=== PATIENT | female | born 1930 | race Caucasian/White ===

== ENCOUNTER 2019-06-18 13:44 | Observation (INO) ==
[2019-06-18] MEDS ORDERED: ONDANSETRON 4 MG/2 ML VIAL IV PRN (15:16)
[2019-06-18] MEDS ORDERED: LABETALOL 20 MG/4 ML SYRINGE IV PRN (15:19)
[2019-06-18 15:54] LABS: Basophils % 0.4 % (0.0-0.8); Eosinophils # 0.1 10*3/uL (0.0-0.87); Hematocrit 37.6 VOL% (35.7-47.0); Immature Granulocytes % 0.4 %; Immature Granulocytes Absolute 0.03 #; Lymphocytes # 2.9 10*3/uL (1.4-4.0); Lymphocytes % 37.4 % (21.3-54.2); Mean Corpuscular HGB Conc 31.9 GM/DL (32-36); Mean Corpuscular Volume 88.9 FL (87-102); Mean Platelet Volume 12.1 FL (9.6-12.0); Monocytes % 6.4 % (1.7-12.7); Neutrophils % 54.4 % (38.7-73.9); Platelet Count 188 T/CUMM (130-400); Red Blood Count 4.23 MC/CUMM (3.8-5.5); Red Cell Distribution Width 12.7 % (9.3-17.3); White Blood Count 7.7 T/CUMM (4-12)
[2019-06-18 16:03] LABS: PT Patient Result 10.6 SECS (9.6-12.2)
[2019-06-18 16:17] LABS: Albumin 3.3 G/DL (3.4-5.0); Bilirubin,Total 0.6 MG/DL (0.2-1.0); Osmolality,Calculated 279.3 MOS/KG (273-304); Total Protein 6.8 G/DL (6.4-8.3)
[2019-06-18] MEDS ORDERED: CYANOCOBALAMIN 1000 MCG/1 ML VIAL IM SCH (16:30)
[2019-06-18] MEDS: ALBUTEROL 2.5 MG/3 ML NEB RESP TX SCH ×2 (17:41→23:52)
[2019-06-18] MEDS: SODIUM CHLORIDE 0.9% 1,000 ML IV SCH (18:44)
[2019-06-18] MEDS: ALPRAZolam 0.25 MG TABLET PO PRN (21:37)
[2019-06-19] MEDS: SODIUM CHLORIDE 0.9% 1,000 ML IV SCH (02:44)
[2019-06-19] MEDS ORDERED: ACETAMINOPHEN 325 MG TABLET PO PRN (04:19)
[2019-06-19 05:28] LABS: Basophils % 0.6 % (0.0-0.8); Eosinophils # 0.1 10*3/uL (0.0-0.87); Eosinophils % 1.9 % (0.00-10.9); Hematocrit 34.3 VOL% (35.7-47.0); Hemoglobin 10.9 GM/DL (12.0-16.0); Immature Granulocytes % 0.2 %; Immature Granulocytes Absolute 0.01 #; Lymphocytes # 2.4 10*3/uL (1.4-4.0); Lymphocytes % 36.9 % (21.3-54.2); Mean Corpuscular HGB Conc 31.8 GM/DL (32-36); Mean Platelet Volume 12.6 FL (9.6-12.0); Monocytes % 7.4 % (1.7-12.7); Platelet Count 160 T/CUMM (130-400); Red Blood Count 3.81 MC/CUMM (3.8-5.5); Red Cell Distribution Width 12.7 % (9.3-17.3); White Blood Count 6.5 T/CUMM (4-12)
[2019-06-19 05:48] LABS: Calcium 8.7 MG/DL (8.5-10.1)
[2019-06-19] MEDS: ALBUTEROL 2.5 MG/3 ML NEB RESP TX SCH ×3 (07:16→23:52)
[2019-06-19] MEDS: PANTOPRAZOLE 40 MG TABLET PO SCH (10:08)
[2019-06-19] MEDS: CITALOPRAM 20 MG TABLET PO SCH (10:09)
[2019-06-19] MEDS: ALPRAZolam 0.25 MG TABLET PO PRN (20:45)
[2019-06-20] MEDS: ALPRAZolam 0.25 MG TABLET PO PRN (02:57)
[2019-06-20] MEDS: ALBUTEROL 2.5 MG/3 ML NEB RESP TX SCH (07:29)
[2019-06-20] MEDS ORDERED: amLODIPine 5 MG TABLET PO SCH (09:00)
[2019-06-20] MEDS ORDERED: LOSARTAN 50 MG TABLET PO SCH (09:00)
[2019-06-20] MEDS ORDERED: EZETIMIBE 10 MG TABLET PO SCH (09:00)
[2019-06-20] MEDS ORDERED: CLOPIDOGREL 75 MG TABLET PO SCH (09:00)
[2019-06-20] MEDS: CITALOPRAM 20 MG TABLET PO SCH (09:20)
[2019-06-20] MEDS: PANTOPRAZOLE 40 MG TABLET PO SCH (09:20)
[2019-06-20 11:51] VITALS: BP 130/62
[2019-06-20] MEDS ORDERED: ROSUVASTATIN 20 MG TABLET PO SCH (21:00)
== END 2019-06-20 16:04 ==
LOC: EDUNIT# → EDBD → N.ED 13:44 → N.EDINP 13:44 → N.4E 16:27
PROVIDERS: ADMIT Internal Medicine Geriatric Medicine; ATTEND Internal Medicine Geriatric Medicine

== ENCOUNTER 2020-05-30 14:24 | Inpatient (IN) ==
[2020-05-30] MEDS ORDERED: DEXTROSE 50% 25 GM/50 ML VIAL IV PRN (17:09)
[2020-05-30] MEDS ORDERED: GLUCAGON 1 MG VIAL IM PRN (17:09)
[2020-05-30] MEDS ORDERED: ACETAMINOPHEN 325 MG TABLET PO PRN (17:09)
[2020-05-30 17:29] LABS: Basophils % 0.3 % (0.0-0.8); Eosinophils % 0.2 % (0.00-10.9); Hematocrit 37.8 VOL% (35.7-47.0); Hemoglobin 12.3 GM/DL (12.0-16.0); Immature Granulocytes % 0.5 %; Immature Granulocytes Absolute 0.07 #; Lymphocytes # 2.3 10*3/uL (1.4-4.0); Lymphocytes % 17.8 % (21.3-54.2); Mean Corpuscular HGB Conc 32.5 GM/DL (32-36); Mean Corpuscular Volume 89.2 FL (87-102); Mean Platelet Volume 11.8 FL (9.6-12.0); Monocytes % 5.7 % (1.7-12.7); Neutrophils % 75.5 % (38.7-73.9); Platelet Count 197 T/CUMM (130-400); Red Blood Count 4.24 MC/CUMM (3.8-5.5); Red Cell Distribution Width 12.6 % (9.3-17.3); White Blood Count 12.8 T/CUMM (4-12)
[2020-05-30] MEDS ORDERED: POTASSIUM CHLORIDE 20 MEQ TABLET PO PRN (17:40)
[2020-05-30] MEDS ORDERED: MAGNESIUM SULF RIDER 4 GM in PREMIX 1 EACH IV PRN (17:40)
[2020-05-30] MEDS ORDERED: MAGNESIUM SULF RIDER 2 GM in PREMIX 1 EACH IV PRN (17:40)
[2020-05-30 17:48] LABS: Calcium 9.4 MG/DL (8.5-10.1); Osmolality,Calculated 274.7 MOS/KG (273-304)
[2020-05-30] MEDS ORDERED: ALPRAZolam 0.25 MG TABLET PO PRN (18:50)
[2020-05-30] MEDS: ENOXAPARIN 40 MG/0.4 ML SYRINGE SUBCUT SCH (20:56)
[2020-05-30] MEDS: traMADol 50 MG TABLET PO PRN (23:44)
[2020-05-31 00:26] LABS: Bacteria,Urine Occasional /HPF (Few); Bilirubin,Urine Negative (Negative); Blood, Urine Small mg/dL (Negative); Glucose,Urine (UA) Negative (Negative); Ketones,Urine Negative (Negative); Mucus,Urine Moderate /LPF (Occasional); Nitrite,Urine Negative (Negative); Protein,Urine Negative; RBC,Urine 21 /HPF (0-4); Squamous Epithelial Cell,Urine Occasional /HPF (0-10); Urine Appearance CLEAR (Clear); Urine Color Yellow (Yellow); Urine Urobilinogen < 2.0 EU/DL (0.2-1.0); WBC,Urine 25 /HPF (0-6)
[2020-05-31 05:39] LABS: Basophils # 0.1 10*3/uL (0.0-0.2); Basophils % 0.5 % (0.0-0.8); Eosinophils # 0.1 10*3/uL (0.0-0.87); Eosinophils % 1.2 % (0.00-10.9); Hematocrit 36.8 VOL% (35.7-47.0); Hemoglobin 11.8 GM/DL (12.0-16.0); Immature Granulocytes % 0.3 %; Immature Granulocytes Absolute 0.03 #; Lymphocytes # 1.9 10*3/uL (1.4-4.0); Mean Corpuscular HGB Conc 32.1 GM/DL (32-36); Mean Corpuscular Volume 88.5 FL (87-102); Mean Platelet Volume 11.5 FL (9.6-12.0); Monocytes % 5.7 % (1.7-12.7); Neutrophils % 74.3 % (38.7-73.9); Platelet Count 183 T/CUMM (130-400); Red Blood Count 4.16 MC/CUMM (3.8-5.5); Red Cell Distribution Width 12.7 % (9.3-17.3); White Blood Count 10.4 T/CUMM (4-12)
[2020-05-31 06:19] LABS: Calcium 9.6 MG/DL (8.5-10.1); Osmolality,Calculated 279.3 MOS/KG (273-304); Risk Ratio 2.64; Thyroid Stimulating Hormone 2.12 uIU/ml (0.358-3.74); Total Protein 6.4 G/DL (6.4-8.3); VLDL CHOLESTEROL 19.2 MG/DL
[2020-05-31] MEDS: traMADol 50 MG TABLET PO PRN ×3 (06:19→21:33)
[2020-05-31] MEDS: ONDANSETRON 4 MG/2 ML VIAL IV PRN (06:24)
[2020-05-31] MEDS: MONTELUKAST CHEW 5 MG TABLET PO SCH (12:35)
[2020-05-31] MEDS: DOCUSATE SODIUM 100 MG CAPSULE PO SCH (12:36)
[2020-05-31] MEDS: FLUoxetine 10 MG CAPSULE PO SCH (12:36)
[2020-05-31] MEDS: LORATADINE 10 MG TABLET PO SCH (12:36)
[2020-05-31] MEDS: EZETIMIBE 10 MG TABLET PO SCH (12:43)
[2020-05-31] MEDS: POLYETHYLENE GLYCOL POWDER 17 GM PACK PO SCH (12:43)
[2020-05-31] MEDS: ENOXAPARIN 40 MG/0.4 ML SYRINGE SUBCUT SCH (21:31)
[2020-05-31] MEDS: cefTRIAXone 1,000 MG in SYRINGE 1 EACH IV SCH (21:31)
[2020-06-01 05:49] LABS: Basophils % 0.4 % (0.0-0.8); Eosinophils # 0.1 10*3/uL (0.0-0.87); Eosinophils % 1.3 % (0.00-10.9); Hemoglobin 11.5 GM/DL (12.0-16.0); Immature Granulocytes % 0.4 %; Immature Granulocytes Absolute 0.04 #; Lymphocytes # 1.9 10*3/uL (1.4-4.0); Mean Corpuscular HGB Conc 31.9 GM/DL (32-36); Mean Corpuscular Volume 89.6 FL (87-102); Monocytes % 7.1 % (1.7-12.7); Neutrophils % 71.8 % (38.7-73.9); Platelet Count 174 T/CUMM (130-400); Red Blood Count 4.02 MC/CUMM (3.8-5.5); Red Cell Distribution Width 12.6 % (9.3-17.3); White Blood Count 10.2 T/CUMM (4-12)
[2020-06-01 06:15] LABS: Albumin 2.6 G/DL (3.4-5.0); Bilirubin,Total 0.5 MG/DL (0.2-1.0); Calcium 9.1 MG/DL (8.5-10.1); Osmolality,Calculated 275.5 MOS/KG (273-304); Total Protein 6.1 G/DL (6.4-8.3)
[2020-06-01] MEDS: traMADol 50 MG TABLET PO PRN ×2 (06:42→21:35)
[2020-06-01] MEDS: FLUoxetine 10 MG CAPSULE PO SCH (11:42)
[2020-06-01] MEDS: EZETIMIBE 10 MG TABLET PO SCH (11:42)
[2020-06-01] MEDS: MONTELUKAST CHEW 5 MG TABLET PO SCH (11:43)
[2020-06-01] MEDS: LORATADINE 10 MG TABLET PO SCH (11:43)
[2020-06-01] MEDS: DOCUSATE SODIUM 100 MG CAPSULE PO SCH (11:44)
[2020-06-01] MEDS: ONDANSETRON 4 MG/2 ML VIAL IV PRN (11:44)
[2020-06-01] MEDS: POLYETHYLENE GLYCOL POWDER 17 GM PACK PO SCH (11:44)
[2020-06-01] MEDS: cefTRIAXone 1,000 MG in SYRINGE 1 EACH IV SCH (18:35)
[2020-06-01] MEDS: COLCHICINE 0.6 MG CAPSULE PO SCH (21:35)
[2020-06-01] MEDS: ENOXAPARIN 40 MG/0.4 ML SYRINGE SUBCUT SCH (21:47)
[2020-06-02 05:35] LABS: Basophils % 0.3 % (0.0-0.8); Eosinophils # 0.1 10*3/uL (0.0-0.87); Eosinophils % 1.5 % (0.00-10.9); Hematocrit 35.5 VOL% (35.7-47.0); Hemoglobin 11.3 GM/DL (12.0-16.0); Immature Granulocytes % 0.4 %; Immature Granulocytes Absolute 0.04 #; Lymphocytes % 21.6 % (21.3-54.2); Mean Corpuscular HGB Conc 31.8 GM/DL (32-36); Mean Corpuscular Volume 88.5 FL (87-102); Mean Platelet Volume 12.2 FL (9.6-12.0); Monocytes % 7.8 % (1.7-12.7); Neutrophils % 68.4 % (38.7-73.9); Platelet Count 152 T/CUMM (130-400); Red Blood Count 4.01 MC/CUMM (3.8-5.5); Red Cell Distribution Width 12.3 % (9.3-17.3); White Blood Count 9.2 T/CUMM (4-12)
[2020-06-02 06:01] LABS: Calcium 9.2 MG/DL (8.5-10.1); Osmolality,Calculated 278.4 MOS/KG (273-304)
[2020-06-02 06:02] LABS: Albumin 2.6 G/DL (3.4-5.0); Calcium 9.6 MG/DL (8.5-10.1); Osmolality,Calculated 278.4 MOS/KG (273-304); Total Protein 6.3 G/DL (6.4-8.3)
[2020-06-02] MEDS: POLYETHYLENE GLYCOL POWDER 17 GM PACK PO SCH (08:21)
[2020-06-02] MEDS: EZETIMIBE 10 MG TABLET PO SCH (08:21)
[2020-06-02] MEDS: DOCUSATE SODIUM 100 MG CAPSULE PO SCH (08:21)
[2020-06-02] MEDS: FLUoxetine 10 MG CAPSULE PO SCH (08:21)
[2020-06-02] MEDS: COLCHICINE 0.6 MG CAPSULE PO SCH (08:21)
[2020-06-02] MEDS: LORATADINE 10 MG TABLET PO SCH (08:21)
[2020-06-02] MEDS: MONTELUKAST CHEW 5 MG TABLET PO SCH (08:21)
[2020-06-02] MEDS ORDERED: LACTATED RINGERS 1,000 ML IV SCH (13:30)
[2020-06-02] MEDS ORDERED: ceFAZolin 1,000 MG VIAL ONE (13:44)
[2020-06-02] MEDS ORDERED: LIDOCAINE 2% 5 ML VIAL ONE (14:33)
[2020-06-02] MEDS ORDERED: propofoL 200 MG/20 ML VIAL IV ONE (14:33)
[2020-06-02] MEDS ORDERED: SEVOFLURANE 1 UNIT/15 MINUTE INH ONE (14:34)
[2020-06-02] MEDS ORDERED: fentaNYL 100 MCG/2 ML VIAL ONE ×2 (14:34→14:46)
[2020-06-02] MEDS ORDERED: GLYCOPYRROLATE 0.4 MG/2 ML VIAL ONE (14:34)
[2020-06-02] MEDS ORDERED: ETOMIDATE 40 MG/20 ML VIAL IV ONE (14:34)
[2020-06-02] MEDS ORDERED: NEOSTIGMINE 10 MG/10 ML VIAL ONE (14:35)
[2020-06-02] MEDS ORDERED: ROCURONIUM 100 MG/10 ML VIAL IV ONE (14:35)
[2020-06-02] MEDS ORDERED: SUCCINYLCHOLINE 200 MG/10 ML VIAL ONE (14:35)
[2020-06-02] MEDS ORDERED: fentaNYL 100 MCG/2 ML VIAL IV ONE (14:46)
[2020-06-02] MEDS ORDERED: ONDANSETRON 4 MG/2 ML VIAL ONE (14:46)
[2020-06-02] MEDS ORDERED: ONDANSETRON 4 MG/2 ML VIAL IV ONE (14:47)
[2020-06-02] MEDS: cefTRIAXone 1,000 MG in SYRINGE 1 EACH IV SCH (17:58)
[2020-06-02] MEDS: ONDANSETRON 4 MG/2 ML VIAL IV PRN (18:14)
[2020-06-02] MEDS: ENOXAPARIN 40 MG/0.4 ML SYRINGE SUBCUT SCH (22:23)
[2020-06-03] MEDS: traMADol 50 MG TABLET PO PRN ×4 (00:41→20:51)
[2020-06-03 05:50] LABS: Calcium 9.6 MG/DL (8.5-10.1); Osmolality,Calculated 275.5 MOS/KG (273-304)
[2020-06-03] MEDS: EZETIMIBE 10 MG TABLET PO SCH (09:02)
[2020-06-03] MEDS: MONTELUKAST CHEW 5 MG TABLET PO SCH (09:03)
[2020-06-03] MEDS: DOCUSATE SODIUM 100 MG CAPSULE PO SCH (09:03)
[2020-06-03] MEDS: METAXALONE 800 MG TABLET PO PRN (09:04)
[2020-06-03] MEDS: FLUoxetine 10 MG CAPSULE PO SCH (09:04)
[2020-06-03] MEDS: LORATADINE 10 MG TABLET PO SCH (09:04)
[2020-06-03] MEDS: POLYETHYLENE GLYCOL POWDER 17 GM PACK PO SCH (09:05)
[2020-06-03] MEDS: CLOPIDOGREL 75 MG TABLET PO SCH (12:38)
[2020-06-03] MEDS: ERTAPENEM 500 MG in SODIUM CHLORIDE 0.9% 100 ML IV SCH (12:38)
[2020-06-03] MEDS: ENOXAPARIN 40 MG/0.4 ML SYRINGE SUBCUT SCH (20:39)
[2020-06-04] MEDS: METAXALONE 800 MG TABLET PO PRN ×3 (00:25→20:08)
[2020-06-04] MEDS: traMADol 50 MG TABLET PO PRN ×5 (01:25→20:08)
[2020-06-04 06:59] LABS: Calcium 9.6 MG/DL (8.5-10.1); Osmolality,Calculated 269.1 MOS/KG (273-304)
[2020-06-04] MEDS: MONTELUKAST CHEW 5 MG TABLET PO SCH (09:37)
[2020-06-04] MEDS: CLOPIDOGREL 75 MG TABLET PO SCH (09:37)
[2020-06-04] MEDS: FLUoxetine 10 MG CAPSULE PO SCH (09:37)
[2020-06-04] MEDS: EZETIMIBE 10 MG TABLET PO SCH (09:37)
[2020-06-04] MEDS: DOCUSATE SODIUM 100 MG CAPSULE PO SCH (09:38)
[2020-06-04] MEDS: LORATADINE 10 MG TABLET PO SCH (09:38)
[2020-06-04] MEDS: POLYETHYLENE GLYCOL POWDER 17 GM PACK PO SCH (09:39)
[2020-06-04] MEDS: ERTAPENEM 500 MG in SODIUM CHLORIDE 0.9% 100 ML IV SCH (11:50)
[2020-06-04] MEDS: ENOXAPARIN 40 MG/0.4 ML SYRINGE SUBCUT SCH (20:08)
[2020-06-05] MEDS: traMADol 50 MG TABLET PO PRN ×4 (02:13→22:08)
[2020-06-05 06:02] LABS: Osmolality,Calculated 277.5 MOS/KG (273-304)
[2020-06-05] MEDS: POLYETHYLENE GLYCOL POWDER 17 GM PACK PO SCH (09:43)
[2020-06-05] MEDS: LORATADINE 10 MG TABLET PO SCH (09:44)
[2020-06-05] MEDS: EZETIMIBE 10 MG TABLET PO SCH (09:44)
[2020-06-05] MEDS: CLOPIDOGREL 75 MG TABLET PO SCH (09:44)
[2020-06-05] MEDS: FLUoxetine 10 MG CAPSULE PO SCH (09:44)
[2020-06-05] MEDS: MONTELUKAST CHEW 5 MG TABLET PO SCH (09:44)
[2020-06-05] MEDS: DOCUSATE SODIUM 100 MG CAPSULE PO SCH (09:44)
[2020-06-05] MEDS: ERTAPENEM 500 MG in SODIUM CHLORIDE 0.9% 100 ML IV SCH (12:39)
[2020-06-05] MEDS: METAXALONE 800 MG TABLET PO PRN ×2 (12:39→20:50)
[2020-06-05] MEDS: ENOXAPARIN 40 MG/0.4 ML SYRINGE SUBCUT SCH (20:50)
[2020-06-06 05:41] LABS: Basophils % 0.5 % (0.0-0.8); Eosinophils # 0.2 10*3/uL (0.0-0.87); Hematocrit 30.6 VOL% (35.7-47.0); Hemoglobin 9.9 GM/DL (12.0-16.0); Immature Granulocytes % 0.4 %; Immature Granulocytes Absolute 0.03 #; Lymphocytes # 2.3 10*3/uL (1.4-4.0); Lymphocytes % 30.3 % (21.3-54.2); Mean Corpuscular HGB Conc 32.4 GM/DL (32-36); Mean Corpuscular Volume 88.2 FL (87-102); Mean Platelet Volume 11.4 FL (9.6-12.0); Monocytes % 10.1 % (1.7-12.7); Neutrophils % 56.7 % (38.7-73.9); Platelet Count 210 T/CUMM (130-400); Red Blood Count 3.47 MC/CUMM (3.8-5.5); Red Cell Distribution Width 12.1 % (9.3-17.3); White Blood Count 7.6 T/CUMM (4-12)
[2020-06-06] MEDS: METAXALONE 800 MG TABLET PO PRN (05:44)
[2020-06-06] MEDS: traMADol 50 MG TABLET PO PRN ×2 (05:44→12:06)
[2020-06-06 06:00] LABS: Osmolality,Calculated 275.5 MOS/KG (273-304)
[2020-06-06] MEDS: POLYETHYLENE GLYCOL POWDER 17 GM PACK PO SCH (09:55)
[2020-06-06] MEDS: LORATADINE 10 MG TABLET PO SCH (09:56)
[2020-06-06] MEDS: EZETIMIBE 10 MG TABLET PO SCH (09:56)
[2020-06-06] MEDS: FLUoxetine 10 MG CAPSULE PO SCH (09:56)
[2020-06-06] MEDS: CLOPIDOGREL 75 MG TABLET PO SCH (09:56)
[2020-06-06] MEDS: DOCUSATE SODIUM 100 MG CAPSULE PO SCH (09:56)
[2020-06-06] MEDS: MONTELUKAST CHEW 5 MG TABLET PO SCH (09:56)
[2020-06-06] MEDS: ERTAPENEM 500 MG in SODIUM CHLORIDE 0.9% 100 ML IV SCH (12:06)
[2020-06-06] MEDS ORDERED: amLODIPine 2.5 MG TABLET PO SCH (15:00)
[2020-06-06 15:51] VITALS: BP 137/67
== END 2020-06-06 15:30 | disposition swing bed (61) | DRG 481 ==
LOC: N.3E → SUATTDRO 16:50 → OBSVTOIN 16:50
PROVIDERS: ADMIT Internal Medicine; ATTEND Hospitalist